=== PATIENT | female | born 1945 | race African-American/Black ===

== ENCOUNTER → 2016-05-08 | Outpatient (CLI) | payer OTHER ==
[~2016-05-08] MED LIST: CLOPIDOGREL75 MG PO; COREG6.25 MG PO; FOLIC ACID PO; KLOR-CON PO; LASIX PO; LOSARTAN POTASS50 MG PO; METFORMIN HCL500 M1 PO; METOPROLOL TAR25 MG PO; TIMOPTIC2.5 ML OU; ZESTRIL2.5 M1 PO
== END | disposition home or self-care (01) ==
LOC: CECH 12:42
DX: I42.9 Cardiomyopathy, unspecified (principal); I37.1 Nonrheumatic pulmonary valve insufficiency
CPT/HCPCS: 93306

== ENCOUNTER → 2016-07-23 | Outpatient (CLI) | payer OTHER ==
--- NOTE | ~2016-07-23 | CT55 ---
[facility] A Service of [facility] RADIOLOGY TEXT RESULTS PATIENT: PHIL RIVERA LOCATION: [facility] : 43 UNIT #: [id number] AGE: [address]: Janice Saeed MD SEX: F ORDER DR: [id number] [facility] [address] [place], [place] [address] [id number] O MR#: [id number] [facility] #: [id number] NAME: PHIL RIVERA : 1945 SEX: F STUDY DATE/TIME: 07/23/2016 15:00 UNIT: [facility] ROOM: STUDY DESCRIPTION: CT Chest W Con Attending Physician: Janice Saeed M.D., Ph.D. Referring Physician: Janice Saeed M.D., Ph.D. Ordering Physician: Judi Saeed M.D. Primary Care Physician: Paloma Christie M.D. MEDICAL IMAGING REPORT This report is preliminary unless electronic signature is present EXAM CT chest with contrast INDICATION Restaging lung cancer. Left lung cancer diagnosed August 2015. Shortness of air on exertion and intermittent cough. Observation for response to therapy and metastatic disease. PROCEDURE Contrast-enhanced CT of the chest. This CT exam was performed with one or more of the following radiation dose reduction techniques: automatic exposure control, adjustment of mA and/or kV according to patient size, and iterative reconstruction. COMPARISON 02/22/2016 FINDINGS Previously demonstrated pulmonary nodules are significantly improved compared with the previous study. Index spiculated nodule anterior left upper lobe measures 9.0 mm, previously 2.0 cm. No definite new or enlarging pulmonary nodule. Cardiomegaly. No new or enlarging mediastinal or hilar adenopathy. Gastrohepatic ligament node measures approximately the 1.2 cm in diameter, previously 1.4 cm. Suspected 1.6 cm low-attenuation lesion posterior right hepatic lobe not definitely seen on the prior. Multifocal low attenuation nodularity in the spleen is nonspecific. Spleen is obscured by streak artifact on the previous study. No aggressive appearing bone lesion. [facility] A Service of [facility] RADIOLOGY TEXT RESULTS PATIENT: PHIL RIVERA LOCATION: [facility] : 43 UNIT #: [id number] AGE: [address]: Janice Saeed MD SEX: F ORDER DR: IMPRESSION 1. Positive response to therapy in the chest. Pulmonary nodules and mediastinal adenopathy, persistent but significantly improved. 2. Suspected new 1.6 cm low-attenuation lesion in the posterior right hepatic lobe as well as multifocal low attenuation nodularity in the spleen. Recommend evaluation with MRI or multiphase CT of the abdomen. 3. A gastrohepatic ligament node is stable to possibly mildly decreased in size. Dictated by... Jose Payton M.D. THIS IS AN ELECTRONICALLY VERIFIED REPORT Jose Payton M.D. at 07/25/2016 7:38 AM Carlos TD: 07/24/2016 12:33 JOB #: [id number] MEDICAL IMAGING REPORT Page 1 of 1 COPY
--- NOTE | ~2016-07-23 | CT5 ---
[facility] A Service of [facility] RADIOLOGY TEXT RESULTS PATIENT: PHIL RIVERA LOCATION: [facility] : 43 UNIT #: [id number] AGE: [address]: Janice Saeed MD SEX: F ORDER DR: [id number] [facility] [address] [place], [place] [address] [id number] O MR#: [id number] Acc #: [id number] NAME: PHIL RIVERA : 1945 SEX: F STUDY DATE/TIME: 07/23/2016 15:00 UNIT: [facility] ROOM: STUDY DESCRIPTION: CT Abdomen W Cont Attending Physician: Janice Saeed M.D., Ph.D. Referring Physician: Janice Saeed M.D., Ph.D. Ordering Physician: Judi Saeed M.D. Primary Care Physician: Paloma Christie M.D. MEDICAL IMAGING REPORT This report is preliminary unless electronic signature is present EXAM CT abdomen with contrast INDICATION Restaging lung cancer diagnosed August 2015. Observation for response to therapy and metastatic disease. Future contrast-enhanced CT abdomen. 100 mL Isovue-370. COMPARISON 10/26/[address] exam was performed with one or more of the following radiation dose reduction techniques: automatic exposure control, adjustment of mA and/or kV according to patient size, and iterative reconstruction. FINDINGS Refer to the separately dictated chest CT for thoracic findings. Multifocal nonspecific low-attenuation lesions in the liver. These are very subtle. They are nonspecific. There is multifocal low attenuation nodularity in the spleen, that is similar to the previous study. An index low-attenuation lesion in the posterior right hepatic lobe measures 1.2 cm. The kidneys, adrenal glands, pancreas, gallbladder unremarkable. The bowel loops are nondilated. There is a short segment focal intussusception small bowel in the left mid abdomen, no proximal dilation. The gastrohepatic ligament node measures 1.2 cm, unchanged from the previous study. No aggressive-appearing bone lesion. IMPRESSION 1. There are a few subtle low-attenuation areas of nodularity in the liver, not definitely seen on the prior. These are nonspecific and STS. [facility] A Service of [facility] RADIOLOGY TEXT RESULTS PATIENT: PHIL RIVERA LOCATION: [facility] : 43 UNIT #: [id number] AGE: [address]: Janice Saeed MD SEX: F ORDER DR: could represent both benign and malignant process. Consider evaluation with multiphase CT or MRI. 2. Nonspecific low-attenuation nodularity and the spleen is unchanged. 3. A prominent gastrohepatic ligament node is unchanged. 4. Likely transit and short segmented section in the right mid abdominal small bowel. Dictated by... Jose Payton M.D. THIS IS AN ELECTRONICALLY VERIFIED REPORT Jose Payton M.D. at 07/25/2016 7:38 AM SANYA/efra TD: 07/24/2016 13:11 JOB #: [id number] MEDICAL IMAGING REPORT Page 1 of 1 COPY
[2016-07-23 15:51] LABS: POC - CREATININE 0.61 mg/dL (0.44-1.03); POC - GFR >60.0 mL/min (>60)
== END | disposition home or self-care (01) ==
LOC: CCAT 13:42
PROVIDERS: Internal Medicine Hematology & Oncology
DX: C34.12 Malignant neoplasm of upper lobe, left bronchus or lung (principal); J20.9 Acute bronchitis, unspecified; R91.1 Solitary pulmonary nodule; K76.89 Other specified diseases of liver
CPT/HCPCS: 71260; 74160; 82565; J1642; Q9967